=== PATIENT | female | born 1985 | race Caucasian/White ===

== ENCOUNTER 2024-11-02 18:03 | Emergency (ER) | payer OTHER ==
[2024-11-02 18:09] VITALS: TEMP 98.1
--- NOTE | 2024-11-02 18:46 | ED ---
Abdominal Pain HPI - General Source: patient, RN notes reviewed Mode of arrival: ambulatory Limitations: no limitations - History of Present Illness MD Complaint: flank pain Onset/Timin -: days(s) <Kali Nixon - Last Filed: 11/02/24 18:44> <Rodolfo Leija - Last Filed: 11/03/24 21:13> - General Chief Complaint: Abdominal Pain Stated Complaint: abd pain Time Seen by Provider: 11/02/24 18:16 - History of Present Illness Initial Comments: Quick note: This is a 39-year-old female with history of UTIs presenting with left flank pain since this morning. Patient endorses pelvic pressure, nausea/vomiting and chills. Endorses use of Mobic with minimal relief. Denies fever, chest pain, dyspnea, diarrhea, constipation, urinary symptoms. Patient states she is currently on her period. (Kali Nixon) 59-year-old female presenting with chief complaint of left flank pain. Pain started this morning and is very sharp in nature. She is also having nausea and vomiting. Patient was seen at urgent care earlier today as she was concerned she had a UTI, she was told that her urine looked okay. No dysuria. No fevers. No diarrhea. No chest pain or difficulty breathing. (Rodolfo Leija) - Related Data Allergies Allergy/AdvReac Type Severity Reaction Status Date / Time cyclobenzaprine Allergy Rash/Hives Verified 11/02/24 18:09 [From Flexeril] Review of Systems ROS Other: All systems not noted in ROS Statement are negative. <Kali Nixon - Last Filed: 11/02/24 18:44> ROS Other: All systems not noted in ROS Statement are negative. <Rodolfo Leija - Last Filed: 11/03/24 21:13> ROS Statement: Those systems with pertinent positive or pertinent negative responses have been documented in the HPI. Past Medical History Past Medical History: No Reported History History of Any Multi-Drug Resistant Organisms: None Reported Past Surgical History: No Surgical Hx Reported Past Psychological History: No Psychological Hx Reported Smoking Status: Never smoker Past Alcohol Use History: None Reported Past Drug Use History: None Reported <Kali Nixon - Last Filed: 11/02/24 18:44> General Exam Limitations: no limitations <Kali Nixon - Last Filed: 11/02/24 18:44> General appearance: alert, in no apparent distress Head exam: Present: atraumatic, normocephalic, normal inspection Eye exam: Present: normal appearance, EOMI Neck exam: Present: normal inspection. Absent: meningismus Respiratory exam: Present: normal lung sounds bilaterally. Absent: respiratory distress, wheezes, rales, rhonchi, stridor Cardiovascular Exam: Present: regular rate, normal rhythm, normal heart sounds. Absent: systolic murmur, diastolic murmur, rubs, gallop, clicks GI/Abdominal exam: Absent: distended Neurological exam: Present: alert, oriented X3 Psychiatric exam: Present: normal affect, normal mood Skin exam: Present: warm, dry <Rodolfo Leija - Last Filed: 11/03/24 21:13> - General Exam Comments Initial Comments: Visual Physical Exam Vital signs reviewed General: Well-appearing, nontoxic. Patient appears slightly distressed, laying on side in chair Head: Normocephalic, atraumatic Eyes: PERRLA, EOMI ENT: Airway patent Chest: Nonlabored breathing Skin: No visual rash, normal skin tone Neuro: Alert and oriented 3 Musculoskeletal: No gross abnormalities (Kali Nixon) Course Vital Signs 11/02/24 11/02/24 18:07 22:01 Temperature 98.1 F Pulse Rate 92 61 Respiratory 20 18 Rate Blood Pressure 116/75 143/83 O2 Sat by Pulse 100 100 Oximetry Medical Decision Making <Kali Nixon - Last Filed: 11/02/24 18:44> <Rodolfo Leija - Last Filed: 11/03/24 21:13> - Medical Decision Making I completed the quick note portion of this chart signed NICOLE Goetz (Kali Nixon) Was pt. sent in by a medical professional or institution (ROSI Matute, PRECISION ASSEMBLY INSPECTOR, urgent care, hospital, or shelter...) When possible be specific @ -No Did you speak to anyone other than the patient for history (EMS, parent, family, police, friend...)? What history was obtained from this source @ -No Did you review nursing and triage notes (agree or disagree)? Why? @ -I reviewed and agree with nursing and triage notes Were old charts reviewed (outside hosp., previous admission, EMS record, old EKG, old radiological studies, urgent care reports/EKG's, shelter records)? Report findings @ -No old charts were reviewed Differential Diagnosis (chest pain, altered mental status, abdominal pain women, abdominal pain men, vaginal bleeding, weakness, fever, dyspnea, syncope, headache, dizziness, GI bleed, back pain, seizure, CVA, palpatations, mental health, musculoskeletal)? @ - MDM Differential Back Pain: Strain, zoster, cauda equina syndrome, epidural abscess, vertebral osteomyelitis, discitis, fracture, subluxation, disc herniation, DJD, spinal stenosis, dissection, AAA, pancreatitis, peptic ulcer disease, pyelonephritis, kidney stone this is not meant to be an all-inclusive list. EKG interpreted by me (3pts min.). @ -As above X-rays interpreted by me (1pt min.). @ -None done CT interpreted by me (1pt min.). @ -CT shows mild left hydroureteronephrosis secondary to obstructing 6 mm calculus at the ureterovesicular junction. No additional left renal calculi. No right renal calculi right obstructive uropathy U/S interpreted by me (1pt. min.). @ -None done What testing was considered but not performed or refused? (CT, X-rays, U/S, labs)? Why? @ -None What meds were considered but not given or refused? Why? @ -None Did you discuss the management of the patient with other professionals (professionals i.e. , PA, PRECISION ASSEMBLY INSPECTOR, lab, RT, psych nurse, social work program coordinator, hydroelectric production technician, teacher, district resource officer, outsole caser)? Give summary @ -No Was smoking cessation discussed for >3mins.? @ -No Was critical care preformed (if so, how long)? @ -No Were there social determinants of health that impacted care today? How? (Homelessness, low income, unemployed, alcoholism, drug addiction, transportation, low edu. Level, literacy, decrease access to med. care, shelter, rehab)? @ -No Was there de-escalation of care discussed even if they declined (Discuss DNR or withdrawal of care, Hospice)? DNR status @ -No What co-morbidities impacted this encounter? (DM, HTN, Smoking, COPD, CAD, Cancer, CVA, ARF, Chemo, Hep., AIDS, mental health diagnosis, sleep apnea, morbid obesity)? @ -None Was patient admitted / discharged? Hospital course, mention meds given and route, prescriptions, significant lab abnormalities, going to OR and other pertinent info. @ -39-year-old female presenting with chief complaint of left flank pain. Workup was initiated by triage. Patient has 22 RBCs in her urine and a negative hCG. CT shows 6 mm left-sided obstructing kidney stone at the UVJ. I informed the patient of these findings. Patient is provided with pain and nausea medication and educated on management plan. She would like to be discharged home. Follow-up with PCP. Report back to ER with any new or worsening symptoms. Discussed return parameters and answered all questions. Patient conveyed verbal understanding and agreed to the plan. I discussed this case in detail with my attending Dr. Montiel Undiagnosed new problem with uncertain prognosis? @ -No Drug Therapy requiring intensive monitoring for toxicity (Heparin, Nitro, Insulin, Cardizem)? @ -No Were any procedures done? @ -No Diagnosis/symptom? @ -Kidney stone Acute, or Chronic, or Acute on Chronic? @ -Acute Uncomplicated (without systemic symptoms) or Complicated (systemic symptoms)? @ -uncomplicated Side effects of treatment? @ -No Exacerbation, Progression, or Severe Exacerbation? @ -No Poses a threat to life or bodily function? How? (Chest pain, [place], [place], pneumonia, PE, COPD, DKA, ARF, appy, cholecystitis, CVA, Diverticulitis, Homicidal, Suicidal, threat to staff... and all critical care pts) @ -Low likelihood (Rodolfo Leija) - Lab Data Lab Results 11/02/24 11/02/24 Range/Units 18:17 18:47 Urine Color Light Yellow Urine Appearance Cloudy H (Clear) Urine pH 6.5 (5.0-8.0) Ur Specific [place] 1.021 (1.001-1.035) Urine Protein Negative (Negative) Urine Glucose (UA) Negative (Negative) Urine Ketones Negative (Negative) Urine Blood Small H (Negative) Urine Nitrite Negative (Negative) Urine Bilirubin Negative (Negative) Urine Urobilinogen <2.0 (<2.0) mg/dL Ur Leukocyte Esterase Negative (Negative) Urine RBC 22 H (0-5) /hpf Urine WBC 1 (0-5) /hpf Amorphous Sediment Occasional H (None) /hpf Urine Mucus Occasional H (None) /hpf Urine HCG, Qual Not Detected (Not Detectd) Disposition <Kali Nixon - Last Filed: 11/02/24 18:44> Is patient prescribed a controlled substance at d/c from ED?: No Time of Disposition: 21:38 <Rodolfo Leija - Last Filed: 11/03/24 21:13> Clinical Impression: Kidney stone Disposition: HOME SELF-CARE Condition: Good Instructions (If sedation given, give patient instructions): Kidney Stones (ED) Additional Instructions: Follow-up with PCP. Report back to ER with any new or worsening symptoms. Referrals: Nonstaff,Physician [Primary Care Provider] - 1-2 days
[2024-11-02 19:08] LABS: Amorphous Sediment,Urine Occasional /hpf; Appearance,Urine Cloudy (Clear); Bilirubin,Urine Negative (Negative); Blood,Urine Small (Negative); Color,Urine Light Yellow; Glucose,Urine (UA) Negative (Negative); Ketones,Urine Negative (Negative); Leukocyte Esterase,Urine Negative (Negative); Mucus,Urine Occasional /hpf; Nitrite,Urine Negative (Negative); PH, Urine 6.5 (5.0-8.0); Protein,Urine Negative (Negative); RBC,Urine 22 /hpf (0-5); Specific Gravity,Urine 1.021 (1.001-1.035); Urobilinogen,Urine <2.0 mg/dL (<2.0); WBC,Urine 1 /hpf (0-5)
--- NOTE | 2024-11-02 19:32 | CT ---
EXAMINATION TYPE: CT abdomen pelvis wo con DATE OF EXAM: 11/02/2024 7:10 PM COMPARISON: CLINICAL INDICATION: Female, 39 years old with history of Left flank pain, N/V; Left flank pain, N/V TECHNIQUE: Axial CT abdomen pelvis wo con;Sagittal and coronal reformats were created on a separate workstation. Contrast used: mL of , (none if empty) Oral contrast used: without Oral Contrast (none if empty) CT DLP: 616.8 mGycm, Automated exposure control for dose reduction was used. FINDINGS: LOWER CHEST: Unremarkable ABDOMEN LIVER: Unremarkable GALLBLADDER AND BILE DUCTS: Unremarkable. PANCREAS: Unremarkable. SPLEEN: Unremarkable. ADRENAL GLANDS: Unremarkable. KIDNEYS AND URETERS: Mild left hydroureteronephrosis secondary obstructing 6 mm calculus at the urete rovesicular junction. No additional left renal calculi. No right renal calculi are obstructive uropat hy. PELVIS BLADDER: No evidence for wall thickening or mass given limitations of exam. REPRODUCTIVE: Unremarkable. ABDOMEN & PELVIS STOMACH AND BOWEL: No evidence of bowel obstruction. PERITONEUM/RETROPERITONEUM: No evidence of pneumoperitoneum or free fluid. VASCULATURE: No evidence of aortic aneurysm. MUSCULOSKELETAL: No acute osseous abnormalities postsurgical changes at L5-S1 hardware appears intact . LYMPH NODES: No gross evidence for lymphadenopathy. SOFT TISSUE/ABDOMINAL WALL: Unremarkable IMPRESSION: Mild left hydroureteronephrosis secondary obstructing 6 mm calculus at the ureterovesicular junction. No additional left renal calculi. No right renal calculi or right obstructive uropathy. [facility], , 11/02/2024 7:30 PM
[2024-11-02] MEDS: ONDANSETRON 4 MG/2 ML VIAL IM STA (21:54)
[2024-11-02] MEDS: KETOROLAC 15 MG/ML 1 ML VIAL IM STA (21:54)
[2024-11-02] MEDS: ONDANSETRON 4 MG ODT STARTER PACK 2 TAB BTL PO STA (21:55)
[2024-11-02] MEDS: TAMSULOSIN 0.4 MG CAP.ER.24H PO STA (21:55)
[2024-11-02] MEDS: ACET/COD 300 MG/30 MG STARTER PACK 6 TAB BTL PO STA (21:55)
[2024-11-02 22:05] VITALS: BP 143/83; PULSE 61; RESP 18
== END 2024-11-02 22:05 | disposition home or self-care (01) ==
LOC: EC 18:03
DX: N13.2 Hydronephrosis with renal and ureteral calculous obstruction (principal); Z88.8 Allergy status to other drugs, medicaments and biological substances
CPT/HCPCS: 81001; 81025; 74176; 99284; 96372; J2405; J1885; S0119